=== PATIENT | female | born 1980 | race Caucasian/White ===

== ENCOUNTER → 2017-08-25 | Outpatient (CLI) | payer OTHER ==
[2017-08-25 13:13] LABS: CREATININE 0.6 mg/dL (0.6-1.3)
== END ==
LOC: M.LAB 12:30 → M.CT 13:30
PROVIDERS: Nurse Practitioner Family
DX: K76.0 Fatty (change of) liver, not elsewhere classified (principal); N28.89 Other specified disorders of kidney and ureter; R59.0 Localized enlarged lymph nodes; Z87.891 Personal history of nicotine dependence